=== PATIENT | female | born 1995 | race Caucasian/White ===

== ENCOUNTER 2025-02-22 08:24 | Outpatient (AMB) | payer MEDICAID, SELFPAY ==
[2025-02-22 08:39] VITALS: BP 128/80; PULSE 77; RESP 16; TEMP 36.6; O2SAT 98; BMI 32.3
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
== END 2025-02-22 09:09 | disposition home or self-care (01) ==
LOC: HODSOBC 08:24
PROVIDERS: Supervising Provider Advanced Practice Midwife; Visit Provider Advanced Practice Midwife
DX: O09.92 Supervision of high risk pregnancy, unspecified, second trimester (principal); Z3A.17 17 weeks gestation of pregnancy
CPT/HCPCS: 99204; G0463

== ENCOUNTER 2025-03-22 09:08 | Outpatient (AMB) | payer MEDICAID, SELFPAY ==
[2025-03-22 09:15] VITALS: BP 128/79; PULSE 73; RESP 17; TEMP 36.8; O2SAT 98; BMI 33.2
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
== END 2025-03-22 09:58 | disposition home or self-care (01) ==
LOC: HODSOBC 09:08
PROVIDERS: Supervising Provider Advanced Practice Midwife; Visit Provider Advanced Practice Midwife
DX: O09.892 Supervision of other high risk pregnancies, second trimester (principal); B17.10 Acute hepatitis C without hepatic coma; O26.612 Liver and biliary tract disorders in pregnancy, second trimester; Z3A.21 21 weeks gestation of pregnancy
CPT/HCPCS: 99214; G0463

== ENCOUNTER 2025-05-04 09:09 | Outpatient (AMB) | payer MEDICAID, SELFPAY ==
[2025-05-04 09:23] VITALS: BP 121/71; PULSE 79; RESP 18; TEMP 36.3; O2SAT 96; BMI 34.4
--- NOTE | 2025-05-04 09:23 | AMB.OBPNC ---
Vital Signs 05/04/25 09:23 Height 1.78 m Height Method Stated Weight 109.316 kg Weight Measurement Method Standing Scale BMI 34.4 BP 121/71 Blood Pressure Source Automatic Cuff Blood Pressure Location Right Upper Arm Position Sitting Respiration 18 Pulse 79 Pulse Source Monitor Temp 97.4 F Temp Source Temporal Artery Scan Pulse Oximetry (%) 96 Oxygen Delivery Method Room Air Allergies/Home Meds Allergies & Medications Allergies No Known Allergies Allergy (Verified 05/04/25 09:24) Medication Reconciliation No Known Home Medications 02/22/25 [History Confirmed 05/04/25] Immunizations Immunizations Flu Vaccine in the Last 12 Months: No Flu Vaccine Exclusion Criteria: No Exclusion Criteria Care OB Visit Log OB Flowsheet Initial Weight: Not Recorded Date <del>?</del> EGA Weight BP Alb Glu CTX Pres Fundal ht FHR Mov Dilation Station Effacement Hx Notes Visit Note 02/22/25 <del>?</del> 17w 0d 102.172 kg 128/80 absent unknown 16 135 absent 29-year-old 1 para 0 for OBI today. Last. October 26, 2024. Patient denies leaking, denies bleeding, denies cramps. No second trimester discomforts. Patient is happy about the Schedule anatomy scan with Dr. Erwin. Continue vitamins. Labs for NIPT, AFP, carrier screens, OB panel with AFP. Discussed diet and weight gain. And I discussed SAB precautions and patient return in 4 weeks. Patient needs a Pap 03/22/25 <del>?</del> 21w 0d 105.29 kg 128/79 absent unknown 21 135 absent Light movement. Denies leaking or bleeding, patient states that she got a follow-up call with M Dr. Erwin for April 18. Referral to Dr. Segovia and for infectious disease is still pending. Consult with Dr. Ledesma regarding patient's hep C and management. The INR and liver enzymes were all within normal range. AFP tumor marker was elevated. After consult with Dr. Ledesma OB decided to refer patient to Dr. Ryan for OB care and management. Discussed labor precautions with patient. Will continue to see patient till she has her first appointment with Dr. Ryan 05/04/25 <del>?</del> 27w 1d 109.316 kg 121/71 absent unknown 27 135 absent Patient has appointment with Dr. Ryan to assume care in 2 weeks. This patient reports she was seen at [facility] 5 days ago for ovarian pain. And she reports that the OB retrieved 2 syringes of fluid from the cyst in the right ovary. She denies cramping, bleeding, leaking. Reports good movement. No complaints of pain Medical release [facility] was obtained from patient and sent for release her visit. Discussed labor precautions. And patient to continue to follow-up with Dr. Ryan for care. ER precautions given CHITO Calculator Estimated Delivery Date Method Current WG Current Estimate 08/02/25 LMP (Certain) 27w 1d Other Estimates 08/02/25 Ultrasound #1 27w 1d 08/02/25 Manual 27w 1d final chito: 08/02/25 Notes Visit Date: 03/22/25 Last Updated by: Josefa Turner CNM NIPT and carrier screen-, O+,abs-, rpr;;nr, rub imm, HBSAG-,HIV-, HCV+, UA-, prev IV meth use+ Visit Date: 02/22/25 Last Updated by: Josefa Turner CNM PAP PP, 29 yo , LMP 10/26/24. EDC: 08/02/25 Office Procedures OBC Clinic LOC & Office Proc's Nursing/Assessment Patient Status: Established Patient OB Clinic Nursing Assessment: Medication Reconciliation, Update PMH in EMR and Vital Signs OB Clinic Coordination of Care: Complex Care and Chronic Disease 1-5, Education Complex Pt/Fam, Consent,records obtained, informed consent, Lab and Imaging orders, Results/Orders obtained and Staff clarify orders Special Needs: Heart tones Established Patient Charge Established Patient Point Assignment: 140 Established Patient Point Charge: EP Level 4 (120-155) Assessment & Plan Diagnosis / Problem List (1) Acute hepatitis C virus infection: Status: Acute Qualifiers: Hepatic coma status: without hepatic coma Qualified Code(s): B17.10 - Acute hepatitis C without hepatic coma (2) Encounter for supervision of high risk in second trimester, antepartum: Status: Acute Plan Discussed sono and labs with patient. Patient is to keep her appointment with Dr. Ryan in 2 weeks. Discussed labor precautions. We did a medical release to [facility] to evaluate her ER visit. Discussed ER precautions and danger signs and symptoms. Additional Plan Follow Up: 2 Weeks (obc)
== END 2025-05-04 09:38 | disposition home or self-care (01) ==
PROVIDERS: Supervising Provider Advanced Practice Midwife; Visit Provider Advanced Practice Midwife
DX: O09.892 Supervision of other high risk pregnancies, second trimester (principal); O98.412 Viral hepatitis complicating pregnancy, second trimester; B17.10 Acute hepatitis C without hepatic coma; Z3A.27 27 weeks gestation of pregnancy
CPT/HCPCS: 99214; G0463